=== PATIENT | female | born 1945 | race Caucasian/White ===

== ENCOUNTER → 2017-02-09 | Outpatient (CLI) | payer MEDICARE, BC ==
--- NOTE | 2017-02-10 08:10 | WWHP ---
CHIEF COMPLAINT: The patient is here for her routine gynecologic exam and mammogram. HPI: This is a 71-year-old G2, P2 with an LMP of 1989. She is status post SAMEER for benign reasons. The patient had a trial of estrogen vaginal cream, which she used briefly. She ended up not being sexually active because of health issues with her boyfriend. She is without gynecologic complaints. PAST MEDICAL HISTORY: Elevated cholesterol, osteopenia and history of kidney stones. MEDICATIONS: 1. Simvastatin 20 mg daily. 2. Calcium supplement with vitamin D 1 daily. 3. Aspirin 81 mg every other day. 4. Vitamin B complex 1 every other day. 5. Vitamin C 3000 units daily. ALLERGIES: PENICILLIN, WHICH CAUSED RASH. 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 SOCIAL HISTORY: She smokes three-quarters of a pack of cigarettes per day and has about two alcoholic drinks per month. She denies drug use. She has been with her boyfriend since 2013, but does not live with him and is not sexually active. She was previously a . She does not work outside the home. REVIEW OF SYSTEMS: She has lost about 3 pounds over the last year. She denies respiratory, cardiac, or GI problems. PHYSICAL EXAM: Blood pressure 118/62, height 5 feet 0 inches, weight 98 pounds. Temperature 96.4, pulse 85. This is a well developed, well nourished white female who is alert and oriented x3 in no acute distress. HEENT is within normal limits. Neck is supple without mass or thyromegaly. Chest and lungs clear to auscultation. Heart: Regular rate and rhythm. Breasts are without mass or discharge. Axillary exam is negative for adenopathy. Back negative for CVA tenderness. Abdomen is soft, nontender without palpable masses. Pelvic exam: External genitalia reveals mild to moderate atrophy without lesions. Vagina reveals mild to moderate atrophy without lesions. There is no evidence of prolapse. Bimanual exam is negative for mass or tenderness. Rectovaginal exam is negative for mass or tenderness and is negative for occult blood. Extremities are nontender. IMPRESSION: 1. A 71-year-old menopausal female status post total abdominal hysterectomy for benign reasons with normal gynecologic exam. 2. History of osteopenia. PLAN: 1. PAP smears have been discontinued. 2. Self breast examination was discussed. 3. Mammogram will be done today. 4. Osteoporosis prevention was discussed. I have recommended bone density testing and slip was given to the patient for this. 5. I have recommended that she try to quit smoking and we have discussed many reasons why she should do this. 6. She will return in one year. TOMMY
--- NOTE | 2017-02-11 08:58 | MM ---
Reason for exam: screening (asymptomatic). Last mammogram was performed 1 year and 1 month ago. History: Patient is postmenopausal. Family history of breast cancer in maternal aunt at age 80. Took estrogen for 2 years. Took progesterone for 2 years. Physical Findings: A clinical breast exam by your physician is recommended on an annual basis and results should be correlated with mammographic findings. MG 3D Screening Mammo W/Cad Bilateral CC and MLO view(s) were taken. Prior study comparison: January 21, 2016, bilateral MG 3d screening mammo w/cad. January 15, 2015, bilateral MG screening mammo w CAD. January 09, 2014, bilateral MG screening mammo w CAD. November 08, 2012, bilateral digital screening mammo w/CAD. There are scattered fibroglandular densities. No significant changes when compared with prior studies. ASSESSMENT: Negative, BI-RAD 1 RECOMMENDATION: Routine screening mammogram of both breasts in 1 year.
== END | disposition home or self-care (01) ==
LOC: WWCWWP 10:59
PROVIDERS: ATTEND Obstetrics & Gynecology
DX: Z12.31 Encounter for screening mammogram for malignant neoplasm of breast (principal)
CPT/HCPCS: 77063; G0202

== ENCOUNTER → 2018-03-08 | Outpatient (CLI) | payer MEDICARE, BC ==
[2018-03-08 13:53] VITALS: BP 112/73; PULSE 73; TEMP 97.9; BMI 16.0
--- NOTE | 2018-03-08 14:42 | P.HPOB ---
History of Present Illness H&P Date: 03/08/18 Chief Complaint: The patient is here for her routine gynecologic exam and mammogram. This is a 72-year-old with an LMP of 1989. The patient is status post [facility] for benign reasons. The patient is without gynecologic complaints. She is not sexually active. Review of Systems She has lost 16 pounds over the past year. She denies respiratory, cardiac and G.I. problems. She denies maltreatment or problems with falling. : she denies any significant problems with urinary leakage. 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 She is status post SAMEER in 1993 uterine fibroids and abnormal bleeding. History of Any Multi-Drug Resistant Organisms: None Reported Past Surgical History: Section, Hysterectomy ([facility] 1989) Additional Past Surgical History / Comment(s): hemorhoid. Colonoscopy 2012 & 2017. Past Psychological History: No Psychological Hx Reported Smoking Status: Former smoker (Previous tobacco smoker, now smoking E cigarettes ) Past Alcohol Use History: Occasional (2 per month) Past Drug Use History: None Reported Additional History: She has been with her boyfriend since 2013 but does not live with him and is not sexually active. She is a and does not work outside the home. - Past Family History Mother Family Medical History: No Reported History Additional Family Medical History / Comment(s): 1 maternal aunt had breast cancer and another maternal aunt had colon cancer. Medications and Allergies Home Medications Medication Instructions Recorded Confirmed Type ALPRAZolam [ALPRAZolam XR] 1.5 PO HS 03/08/18 History Ascorbic Acid [Vitamin C] 3,000 mg PO DAILY 03/08/18 03/08/18 History Aspirin PO DAILY 03/08/18 History Atorvastatin [Lipitor] mg PO DAILY 03/08/18 History Allergies Allergy/AdvReac Type Severity Reaction Status Date / Time No Known Allergies Allergy Unverified 03/08/18 13:53 Exam Vital Signs Temp Pulse BP 03/08/18 13:50 97.9 F 73 112/73 Intake and Output 03/07/18 03/08/18 03/08/18 22:59 06:59 14:59 Other: Weight 37.195 kg Height 5'0", BMI 16.0. This is a well-developed well-nourished white female who is alert and oriented times 3 in no acute distress. HEENT: Within normal limits. NECK: Supple without mass or thyromegaly. CHEST AND LUNGS: Clear to auscultation. HEART: Regular rate and rhythm. BREASTS: Are without mass or discharge. AXILLARY EXAM: Negative for adenopathy. BACK: Negative for CVA tenderness. ABDOMEN: Soft, nontender, without palpable masses. PELVIC EXAM: Normal external genitalia with mild atrophy. Vagina appears normal with mild atrophy. There is no unusual discharge. There is no evidence of prolapse. There are no palpable adnexal masses or tenderness. RECTAL EXAM: rectovaginal exam is negative for mass or tenderness and is negative for occult blood. EXTREMITIES: Nontender. IMPRESSION: 1. 72-year-old menopausal female status post SAMEER for benign reasons with normal gynecologic exam. 2. History of osteopenia. PLAN: 1. Pap smears have been discontinued. 2. Self breast awareness was discussed. 3. Screening mammogram will be done today. 4. Osteoporosis prevention was discussed. I have recommended bone density screening since it has been several years since she has done this. The order slip was given to the patient for this. 5. She does get flu shots in the fall and she will be getting this in the near future. 6. She will return in one year.
--- NOTE | 2018-03-09 12:04 | MM ---
Reason for exam: screening (asymptomatic). Last mammogram was performed 1 year and 1 month ago. History: Patient is postmenopausal. Family history of breast cancer in maternal aunt at age 80. Took estrogen for 2 years. Took progesterone for 2 years. Physical Findings: A clinical breast exam by your physician is recommended on an annual basis and results should be correlated with mammographic findings. MG Screening Mammo w CAD Bilateral CC and MLO view(s) were taken. Prior study comparison: February 09, 2017, bilateral MG 3d screening mammo w/cad. January 21, 2016, bilateral MG 3d screening mammo w/cad. The breast tissue is heterogeneously dense. This may lower the sensitivity of mammography. There is no discrete abnormality. No significant changes when compared with prior studies. ASSESSMENT: Negative, BI-RAD 1 RECOMMENDATION: Routine screening mammogram of both breasts in 1 year.
== END | disposition home or self-care (01) ==
LOC: WWCWWP 13:31
PROVIDERS: ATTEND Obstetrics & Gynecology
DX: Z12.31 Encounter for screening mammogram for malignant neoplasm of breast (principal)
CPT/HCPCS: 77067

== ENCOUNTER → 2018-04-04 | Outpatient (CLI) | payer MEDICARE, BC ==
--- NOTE | 2018-04-05 06:52 | BD ---
EXAMINATION TYPE: Axial Bone Density DATE OF EXAM: 04/04/2018 COMPARISON: 2004 CLINICAL HISTORY: post menopausal Height: 5' Weight: 98 FRAX RISK QUESTIONS: Secondary Osteoporosis: Current Tobacco Use: e cigarettes RISK FACTORS HISTORY OF: Postmenopausal woman: y MEDICATIONS: Additional Medications: cholesterol Additional History: EXAM MEASUREMENTS: Bone mineral densitometry was performed using the [employer] System. Bone mineral density as measured about the Lumbar spine is: ----- L1-L4(G/cm2): 0.958 T Score Values are as follows: ----- L2: -2.2 ----- L3: -1.4 ----- L4: -2.1 ----- L1-L4: -1.8 Bone mineral density about the R hip (g/cm2): 0.909 Bone mineral density about the L hip (g/cm2): 0.894 T Score values are as follows: -----R Neck: -0.9 -----L Neck: -1.0 -----R Total: -0.8 -----L Total: -0.6 IMPRESSION: Osteopenia (T Score between -2.5 and -1) overall in the low back. There is slightly increased risk of fracture and the patient may be considered for treatment. Re-Screen 2-5 years. NOTE: T-SCORE=SD OF THE YOUNG ADULT MEAN.
--- NOTE | 2018-04-05 17:49 | P.PN ---
Progress Note - Text Progress Note Date: 04/05/18 OUTPATIENT FOLLOW-UP NOTE TEST(S)/RESULTS: bone density testing done on 04/04/2018 showed osteopenia. METHOD OF NOTIFICATION: the patient was notified by phone. PATIENT COMMENTS: the patient understands the results. DIAGNOSIS: osteopenia DISCUSSION: we had a long discussion regarding the importance of adequate calcium, vitamin D and regular exercise. She will use the handout that she received to help her get adequate amounts of things. PLAN: she will return in one year for her annual exam and we will plan on repeating the bone density testing in 2 to 3 years.
== END | disposition home or self-care (01) ==
LOC: RADBDWWP 14:35
PROVIDERS: ATTEND Obstetrics & Gynecology
DX: M85.88 Other specified disorders of bone density and structure, other site (principal); Z78.0 Asymptomatic menopausal state
CPT/HCPCS: 77080

== ENCOUNTER → 2019-07-04 | Outpatient (CLI) | payer MEDICARE, BC ==
[2019-07-04 14:02] VITALS: BP 137/77; PULSE 72; RESP 18; TEMP 97.8
--- NOTE | 2019-07-04 15:01 | P.HPOB ---
History of Present Illness H&P Date: 07/04/19 Chief Complaint: The patient is here for her routine gynecologic exam and ma mmogram. This is a 73-year-old with an LMP of 1989. The patient is status post SAMEER for benign reasons. The patient states she has had an infrequent brownish red discharge which is typically very brief and occurs about once a month. This has gone on for more than 10 years. She initially had seen Dr. Benitez for this. She has not been sexually active for many years but is contemplating being sexually active with her new boyfriend. She denies any vaginal odor or pruritus. She tends to notice the dark reddish discharge after she strains for a bowel movement, or if she has been on her feet for many hours. She does not believe this comes from the rectal area or from her urine. It typically only lasts for part of 1 day. She is otherwise without complaints. Review of Systems She has gained about 3 pounds over the last 2 years.. She denies respiratory, cardiac and G.I. problems. She denies maltreatment or problems with falling. : she denies any significant problems with urinary leakage. 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 She is status post SAMEER in 1993 uterine fibroids and abnormal bleeding. History of Any Multi-Drug Resistant Organisms: None Reported Past Surgical History: Section, Hysterectomy Additional Past Surgical History / Comment(s): SAMEER 1989. hemorhoid. Colonoscopy 2012 & 2017. Past Psychological History: No Psychological Hx Reported Smoking Status: Former smoker Past Alcohol Use History: Occasional Additional Past Alcohol Use History / Comment(s): She quit smoking cigarettes in approximately 2017. She does smoke a cigarettes but states she does not inhale. Past Drug Use History: None Reported Additional History: She is a and recently met her boyfriend in May 2019. - Past Family History Mother Family Medical History: No Reported History Additional Family Medical History / Comment(s): 1 maternal aunt had breast cancer and another maternal aunt had colon cancer. Medications and Allergies Home Medications Medication Instructions Recorded Confirmed Type ALPRAZolam [ALPRAZolam XR] 1.5 mg PO HS PRN 03/08/18 07/04/19 History Ascorbic Acid [Vitamin C] 3,000 mg PO DAILY 03/08/18 07/04/19 History Aspirin 81 mg PO DAILY 03/08/18 07/04/19 History Atorvastatin [Lipitor] 40 mg PO DAILY 03/08/18 07/04/19 History Allergies Allergy/AdvReac Type Severity Reaction Status Date / Time No Known Allergies Allergy Unverified 07/04/19 14:02 Exam Vital Signs Temp Pulse Resp BP Pulse Ox 07/04/19 13:55 97.8 F 72 18 137/77 96 Intake and Output 07/03/19 07/04/19 07/04/19 22:59 06:59 14:59 Other: Weight 45.813 kg Height 5 feet 0 inches, weight 101 pounds, BMI 19.7. This is a well-developed well-nourished white female who is alert and oriented times 3 in no acute distress. HEENT: Within normal limits. NECK: Supple without mass or thyromegaly. CHEST AND LUNGS: Clear to auscultation. HEART: Regular rate and rhythm. BREASTS: Are without mass or discharge. AXILLARY EXAM: Negative for adenopathy. BACK: Negative for CVA tenderness. ABDOMEN: Soft, nontender, without palpable masses. PELVIC EXAM: External genitalia appears normal with mild atrophy. Vagina appears normal with mild atrophy. There is no blood or abnormal discharge. There is no evidence of prolapse. Bimanual examination is negative for mass or tenderness. RECTAL EXAM: Rectovaginal exam is negative for mass or tenderness and is negative for occult blood. EXTREMITIES: Nontender. IMPRESSION: 1. 73-year-old menopausal female status post SAMEER for benign reasons with normal gynecologic exam. 2. Intermittent brief episodes of old blood type discharge from the vagina most common when she strains for a bowel movement or has been on her feet for many hours. Differential diagnosis will include small blood from atrophic vaginal mucosa, hemorrhoid blood, perivaginal varicosity bleeding, or urinary tract blood. 3. History of osteoporosis PLAN: 1. Pap smears have been discontinued. 2. Self breast awareness was discussed with the patient. 3. A mammogram will be done today. 4. Osteoporosis prevention was discussed. I have stressed the importance of adequate calcium, vitamin D and regular exercise. Recommended amounts of calcium and vitamin D were also discussed. Bone density testing will be done in one year 5. Trial of Premarin vaginal cream. We will see if this is helpful for her intermittent vaginal bloody discharge. This may also be helpful since she is contemplating it becoming sexually active. Premarin 1 g intravaginally 2 times weekly. The patient is requesting a paper prescription which was given to her. 6. She was instructed to call at the time she has a bloody is discharged so he cannot examine her at that time, if possible. 7. She did get a flu shot last fall. 8. She was advised to return in one year for her annual well woman exam.
--- NOTE | 2019-07-06 10:44 | MM ---
Reason for exam: screening (asymptomatic). Last mammogram was performed 1 year and 4 months ago. History: Patient is postmenopausal. Family history of breast cancer in maternal aunt at age 80. Took hormonal contraceptives for 10 years. Took estrogen for 2 years. Took progesterone for 2 years. Physical Findings: A clinical breast exam by your physician is recommended on an annual basis and results should be correlated with mammographic findings. MG 3D Screening Mammo W/Cad Bilateral CC and MLO view(s) were taken. Prior study comparison: March 08, 2018, bilateral MG screening mammo w CAD. February 09, 2017, bilateral MG 3d screening mammo w/cad. There are scattered fibroglandular densities. No significant changes when compared with prior studies. ASSESSMENT: Benign, BI-RAD 2 RECOMMENDATION: Routine screening mammogram of both breasts in 1 year.
== END | disposition home or self-care (01) ==
LOC: WWCWWP 13:47
PROVIDERS: ATTEND Obstetrics & Gynecology
DX: Z12.31 Encounter for screening mammogram for malignant neoplasm of breast (principal)
CPT/HCPCS: 77063; 77067

== ENCOUNTER → 2020-12-03 | Outpatient (CLI) | payer MEDICARE, BC ==
[2020-12-03 14:29] VITALS: BP 108/70; PULSE 82; RESP 18; TEMP 98
--- NOTE | 2020-12-03 15:15 | P.HPOB ---
History of Present Illness H&P Date: 12/03/20 Chief Complaint: The patient is here for her routine gynecologic exam and ma mmogram. This is a 75-year-old with an LMP of 1989. The patient is status post SAMEER for benign reasons. She is without gynecologic complaints. She states she no longer has the occasional brownish red discharge like she had in the past. We had planned on having her try estrogen cream into the vagina to see if it helped, but she never used this. Instead she has been using Astra glide into the vagina and states she no longer has the brownish reddish discharge. She has a boyfriend who lives in [place] and they have not been able to see each other during the COVID pandemic. Review of Systems She has lost about 3 pounds over the past year. She denies respiratory, cardiac and G.I. problems. She denies maltreatment or problems with falling. : she denies any significant problems with urinary leakage. 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 She is status post SAMEER in 1993 uterine fibroids and abnormal bleeding. History of Any Multi-Drug Resistant Organisms: None Reported Past Surgical History: Section, Hysterectomy Additional Past Surgical History / Comment(s): SAMEER 1989. hemorhoid. Colonoscopy 2012 & 2018(next after 10yr). Past Psychological History: No Psychological Hx Reported Smoking Status: Former smoker Past Alcohol Use History: Daily (2 per day) Additional Past Alcohol Use History / Comment(s): She quit smoking cigarettes in approximately 2018. Past Drug Use History: None Reported Additional History: She is a and has had a boyfriend since 2019 who [place] [facility] [place]. She enjoys dancing. - Past Family History Mother Family Medical History: No Reported History Additional Family Medical History / Comment(s): 1 maternal aunt had breast cancer and another maternal aunt had colon cancer. Brother(s) Additional Family Medical History / Comment(s): of a brain aneurysm. Medications and Allergies Home Medications Medication Instructions Recorded Confirmed Type ALPRAZolam [ALPRAZolam XR] 1.5 mg PO HS PRN 03/08/18 12/03/20 History Ascorbic Acid [Vitamin C] 2,000 mg PO DAILY 03/08/18 12/03/20 History Aspirin 81 mg PO DAILY 03/08/18 12/03/20 History Atorvastatin [Lipitor] 40 mg PO DAILY 03/08/18 12/03/20 History Calcium Carbonate/Vitamin D3 1 each PO DAILY 12/03/20 12/03/20 History [Calcium 600 mg-D3 20 mcg (800 unit)] Cholecalciferol [Vitamin D3 (25 25 mcg PO DAILY 12/03/20 12/03/20 History Mcg = 1000 Iu)] Equate Allergy 180 mg PO DAILY 12/03/20 12/03/20 History Glucosamine-Chondr 500-400Mg 1 each PO DAILY 12/03/20 12/03/20 History Stool Softener 1 tab PO DAILY 12/03/20 12/03/20 History Super B-Complex 1 tab PO DAILY 12/03/20 12/03/20 History Turmeric Root Extract [Turmeric] 500 mg PO DAILY 12/03/20 12/03/20 History Allergies Allergy/AdvReac Type Severity Reaction Status Date / Time No Known Allergies Allergy Unverified 12/03/20 14:17 Exam Vital Signs Temp Pulse Resp BP Pulse Ox 12/03/20 14:24 98.0 F 82 18 108/70 95 Intake and Output 12/03/20 12/03/20 12/03/20 06:59 14:59 22:59 Other: Weight 44.452 kg Height 5 feet 0 inches, weight 98 pounds, BMI 19.1. This is a well-developed well-nourished white female who is alert and oriented times 3 in no acute distress. HEENT: Within normal limits. NECK: Supple without mass or thyromegaly. CHEST AND LUNGS: Clear to auscultation. HEART: Regular rate and rhythm. BREASTS: Are without mass or discharge. AXILLARY EXAM: Negative for adenopathy. BACK: Negative for CVA tenderness. ABDOMEN: Soft, nontender, without palpable masses. PELVIC EXAM: External genitalia appears normal with mild to moderate atrophy. Vagina appears normal with mild to moderate atrophy. There is no unusual discharge and no evidence of blood. There is no evidence of prolapse. Bimanual examination is negative for mass or tenderness. RECTAL EXAM: Rectovaginal exam is negative for mass or tenderness and is negative for occult blood. EXTREMITIES: Nontender. IMPRESSION: 1. 75-year-old menopausal female status post SAMEER for benign reasons with normal gynecologic exam. 2. History of osteopenia. PLAN: 1. Pap smears have been discontinued. 2. Self breast awareness was discussed with the patient. 3. Screening mammogram will be done today. 4. Osteoporosis prevention was discussed. I have stressed the importance of adequate calcium, vitamin D and regular exercise. Recommended amounts of calcium and vitamin D were also discussed. I have recommended repeating the bone density testing and the order slip was given to the patient for this. 5. She did complete her Covid vaccination series and did have a flu shot last fall. 6. The patient was advised to return in 1-2 years for her well woman examination.
--- NOTE | 2020-12-05 08:40 | MM ---
Reason for exam: screening (asymptomatic). Last mammogram was performed 1 year and 5 months ago. History: Patient is postmenopausal. Family history of breast cancer in maternal aunt at age 80. Took hormonal contraceptives for 10 years. Took estrogen for 2 years. Took progesterone for 2 years. Physical Findings: A clinical breast exam by your physician is recommended on an annual basis and results should be correlated with mammographic findings. MG 3D Screening Mammo W/Cad Bilateral CC and MLO view(s) were taken. Prior study comparison: July 04, 2019, bilateral MG 3d screening mammo w/cad. March 08, 2018, bilateral MG screening mammo w CAD. There are scattered fibroglandular densities. No significant changes when compared with prior studies. ASSESSMENT: Negative, BI-RAD 1 RECOMMENDATION: Routine screening mammogram of both breasts in 1 year.
== END ==
LOC: WWCWWP 13:51
PROVIDERS: ATTEND Obstetrics & Gynecology
DX: Z12.31 Encounter for screening mammogram for malignant neoplasm of breast (principal); Z01.419 Encounter for gynecological examination (general) (routine) without abnormal findings; E78.5 Hyperlipidemia, unspecified; Z80.3 Family history of malignant neoplasm of breast; Z87.891 Personal history of nicotine dependence; Z90.710 Acquired absence of both cervix and uterus; Z87.39 Personal history of other diseases of the musculoskeletal system and connective tissue
CPT/HCPCS: 77063; 77067

== ENCOUNTER → 2022-01-27 | Outpatient (CLI) | payer MEDICARE, BC ==
[2022-01-27 12:53] VITALS: BP 135/69; PULSE 74; RESP 17; TEMP 98.1
--- NOTE | 2022-01-27 13:39 | P.HPOB ---
History of Present Illness H&P Date: 01/27/22 Chief Complaint: The patient is here for her routine gynecologic exam and ma mmogram. This is a 76-year-old with an LMP of 1989. She is status post SAMEER for benign reasons. The patient states she had not been sexually active for quite some time because of the inability for [place] boyfriend [place] due to the pandemic. This year, they are now able to see each other and have been infrequently sexually active. She denies problems with discomfort with intercourse or vaginal dryness. She has noticed on a couple of occasions that she has had some post coital light spotting. She has had this in the past but has not noticed it for quite some time until about 3 months ago and again last week. She denies any current vaginal bleeding today. She denies vaginal discharge or odor. Review of Systems The patient has gained 4 pounds over the last year. She denies respiratory, cardiac, or G.I. problems. 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 She is status post SAMEER in 1993 uterine fibroids and abnormal bleeding. History of Any Multi-Drug Resistant Organisms: None Reported Past Surgical History: Section, Hysterectomy Additional Past Surgical History / Comment(s): SAMEER 1989. hemorhoid. Colonoscopy 2012 & 2018(next after 10yr). Past Psychological History: No Psychological Hx Reported Smoking Status: Former smoker Past Alcohol Use History: Occasional (About 8 per week) Additional Past Alcohol Use History / Comment(s): She quit smoking cigarettes in approximately 2018. Past Drug Use History: None Reported Additional History: She is a and has had a boyfriend in [place] since 2019. They enjoy dancing. They are sexually active. - Past Family History Mother Family Medical History: No Reported History Additional Family Medical History / Comment(s): 1 maternal aunt had breast cancer and another maternal aunt had colon cancer. Brother(s) Additional Family Medical History / Comment(s): of a brain aneurysm. Sister(s) Additional Family Medical History / Comment(s): Carotid artery disease. Medications and Allergies Home Medications Medication Instructions Recorded Confirmed Type ALPRAZolam [ALPRAZolam XR] 1.5 mg PO HS PRN 09/11/18 06/08/21 History Ascorbic Acid [Vitamin C] 2,000 mg PO DAILY 03/08/18 12/03/20 History Aspirin 81 mg PO DAILY 03/08/18 12/03/20 History Atorvastatin [Lipitor] 40 mg PO DAILY 03/08/18 12/03/20 History Calcium Carbonate/Vitamin D3 1 each PO DAILY 12/03/20 12/03/20 History [Calcium 600 mg-D3 20 mcg (800 unit)] Cholecalciferol [Vitamin D3 (25 25 mcg PO DAILY 12/03/20 12/03/20 History Mcg = 1000 Iu)] Equate Allergy 180 mg PO DAILY 12/03/20 12/03/20 History Glucosamine-Chondr 500-400Mg 1 each PO DAILY 12/03/20 12/03/20 History Stool Softener 1 tab PO DAILY 12/03/20 12/03/20 History Super B-Complex 1 tab PO DAILY 12/03/20 12/03/20 History Turmeric Root Extract [Turmeric] 500 mg PO DAILY 12/03/20 12/03/20 History Allergies Allergy/AdvReac Type Severity Reaction Status Date / Time No Known Allergies Allergy Unverified 12/03/20 14:17 Exam Vital Signs Temp Pulse Resp BP Pulse Ox 01/27/22 12:49 98.1 F 74 17 135/69 96 Intake and Output 01/26/22 01/27/22 01/27/22 22:59 06:59 14:59 Other: Weight 46.266 kg Height 5 feet 0 inches, weight 102 pounds, BMI 19.9. This is a well-developed well-nourished white female who is alert and oriented times 3 in no acute distress. HEENT: Within normal limits. NECK: Supple without mass or thyromegaly. CHEST AND LUNGS: Clear to auscultation. HEART: Regular rate and rhythm. BREASTS: Are without mass or discharge. AXILLARY EXAM: Negative for adenopathy. BACK: Negative for CVA tenderness. ABDOMEN: Soft, nontender, without palpable masses. PELVIC EXAM: External genitalia appears normal with mild atrophy. Vagina appears normal is mild atrophy. There is no evidence of blood or evidence of abnormal discharge. There is no evidence of prolapse. Bimanual examination reveals a pelvic mass just superior and posterior to the vaginal apex. It measures approximately 3 x 4 cm and is slightly irregular. RECTAL EXAM: Rectovaginal exam reveals some stool in the rectum, but there still is a mass superior and posterior to the apex of the vagina. This is nontender. EXTREMITIES: Nontender. IMPRESSION: 1. 76-year-old menopausal female status post SAMEER for benign reasons with a pelvic mass palpable with bimanual examination. Differential diagnosis will include colonic stool and less likely, ovarian neoplasm. 2. Occasional post coital spotting. This is not from a uterine source since she has had a hysterectomy. This could be related to some genital atrophy. Currently there are no significant physical findings indicating a specific source of the blood. 3. History of osteopenia. PLAN: 1. Pap smears have been discontinued. 2. Self breast awareness was discussed with the patient. We have also discussed symptoms associated with inflammatory breast cancer. 3. Screening mammogram will be done today. 4. Pelvic ultrasound was recommended to further evaluate the pelvic mass on exam today. I recommended that she try to empty her bowels as completely as possible. I have suggested considering using Senokot the week prior to the ultrasound. The order for the ultrasound was given to the patient. 5. Trial of Premarin vaginal cream 1 g into the vagina 2 times per week. The electronic prescription will be sent to [facility] pharmacy. 6.Osteoporosis prevention was discussed. I have stressed the importance of adequate calcium, vitamin D and regular exercise. Recommended amounts of calcium and vitamin D were also discussed. I have recommended bone density test since her last one was in 2018. The order slip was given to the patient for this. 7. She has completed her Covid vaccination series and did receive 2 boosters. 8. She was advised to return in one year for her annual well woman exam and as needed.
--- NOTE | 2022-01-28 08:53 | MM ---
Reason for Exam: Screening (asymptomatic). Last mammogram was performed 1 year(s) and 2 month(s) ago. Patient History: Menarche at age 16. First Full-Term at age 19. Hysterectomy at age 47. Postmenopausal. Estrogen for 2 years until age 58. Progesterone for 2 years until age 58. Patient used Hormonal Contraceptives for 10 years. Maternal aunt had breast cancer, age 80. Risk Values: Marli 5 year model risk: 1.2%. NCI Lifetime model risk: 2.7%. Prior Study Comparison: 03/08/2018 Bilateral Screening Mammogram, [facility]. 07/04/2019 Bilateral Screening Mammogram, [facility]. 12/03/2020 Bilateral Screening Mammogram, [facility]. Tissue Density: There are scattered fibroglandular densities. Findings: Analyzed By CAD. A few stable benign appearing grouped calcifications are within the anterior right subareolar breast. No suspicious groups of microcalcifications, spiculated or lobular masses, architectural distortion or other secondary signs of malignancy are mammographically apparent. Overall Assessment: Benign, BI-RAD 2 Management: Screening Mammogram of both breasts in 1 year. A negative mammogram report should not preclude additional follow up of suspicious palpable abnormalities. Patient should continue monthly self breast exam. A clinical breast exam by your physician is recommended on an annual basis and results should be correlated with mammographic findings. Electronically signed and approved by: Marques Sorto D.O. Radiologis
== END ==
LOC: WWCWWP 12:26
PROVIDERS: ATTEND Obstetrics & Gynecology
DX: Z12.31 Encounter for screening mammogram for malignant neoplasm of breast (principal); Z01.419 Encounter for gynecological examination (general) (routine) without abnormal findings; N93.9 Abnormal uterine and vaginal bleeding, unspecified; Z87.891 Personal history of nicotine dependence; E78.5 Hyperlipidemia, unspecified; Z90.710 Acquired absence of both cervix and uterus; Z87.39 Personal history of other diseases of the musculoskeletal system and connective tissue
CPT/HCPCS: 77063; 77067

== ENCOUNTER → 2022-02-03 | Outpatient (CLI) | payer MEDICARE, BC ==
--- NOTE | 2022-02-03 15:53 | US ---
EXAMINATION TYPE: US pelvic limited with transvaginal imaging DATE OF EXAM: 02/03/2022 COMPARISON: NONE CLINICAL HISTORY: R68.89 ABN PELVIC EXAM,R19.09 PELVIC MASS. pt had recent pelvic exam that showed po ssible pelvic mass TECHNIQUE: . Transabdominal sonographic images of the pelvis were acquired. Transvaginal sonographi c images were medically necessary to better assess the following anatomy: vaginal cuff and surroundin g adnexae 1. Uterus: surgically absent 2. Unable to visualize either ovary. 3. No pelvic mass noted. 4. Normal peristalsing bowel noted. 5. Bilateral Adnexa: wnl 6. Posterior cul-de-sac: no free fluid seen IMPRESSION: Postoperative pelvis without evidence for recurrent or residual mass.
--- NOTE | 2022-02-04 11:54 | P.PN ---
Progress Note - Text Progress Note Date: 02/04/22 OUTPATIENT FOLLOW-UP NOTE TEST(S)/RESULTS: Pelvic ultrasound done on 02/03/2022 was unremarkable with no evidence of pelvic mass. METHOD OF NOTIFICATION: A message with this result was left on the patient's voicemail. PATIENT COMMENTS: DIAGNOSIS: Normal pelvic ultrasound. DISCUSSION: The mass palpated on her exam near the top of the vaginal cuff was likely represented colonic stool. PLAN: No further workup is needed at this time.
== END | disposition home or self-care (01) ==
LOC: RADUSWWP 15:20
PROVIDERS: ATTEND Obstetrics & Gynecology
DX: R19.09 Other intra-abdominal and pelvic swelling, mass and lump (principal); R68.89 Other general symptoms and signs
CPT/HCPCS: 76830; 76857

== ENCOUNTER 2024-09-12 16:05 | Inpatient (IN) | payer MEDICARE, BC ==
--- NOTE | 2024-09-12 16:55 | ED ---
Fall HPI - General Chief Complaint: Fall Stated Complaint: Fall R Hip injury Time Seen by Provider: 09/12/24 16:19 Source: patient Mode of arrival: ambulatory - History of Present Illness Initial Comments: 79-year-old female presenting with chief complaint of right hip pain. Patient reports pain has been particularly bad for the last 4 days. She reports that she had a fall back in April and has been doing physical therapy but has not really had any improvement with this and now her pain has been getting worse. No numbness or tingling. Sometimes the pain does shoot down her leg. No abdominal pain. - Related Data Home Medications Medication Instructions Recorded Confirmed Ascorbic Acid [Vitamin C] 1,000 mg PO DAILY 03/08/18 03/23/23 Atorvastatin [Lipitor] 40 mg PO HS 03/08/18 03/23/23 Cholecalciferol [Vitamin D3 (25 25 mcg PO DAILY 12/03/20 03/23/23 Mcg = 1000 Iu)] ALPRAZolam [Xanax] 0.5 mg PO TID PRN 09/01/22 03/23/23 Docusate [Colace] 100 mg PO DAILY 09/01/22 03/23/23 Vitamin B Complex 1 cap PO DAILY 09/01/22 03/23/23 calcium polycarbophiL [Fibercon] 625 mg PO DAILY 09/01/22 03/23/23 rOPINIRole HCL [Requip] 1 mg PO HS 09/01/22 03/23/23 Previous Rx's Medication Instructions Recorded predniSONE [Deltasone] 60 mg PO DAILY 56 Days #91 tab 09/03/22 Allergies Allergy/AdvReac Type Severity Reaction Status Date / Time Penicillins Allergy Rash/Hives Verified 09/12/24 16:07 all over Review of Systems ROS Statement: Those systems with pertinent positive or pertinent negative responses have been documented in the HPI. ROS Other: All systems not noted in ROS Statement are negative. Past Medical History Past Medical History: Hyperlipidemia Additional Past Medical History / Comment(s): Osteopenia and history of kidney stones. Valladares's palsy in 2022. Restless Leg Syndrome. 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 She is status post SAMEER in 1993 uterine fibroids and abnormal bleeding. History of Any Multi-Drug Resistant Organisms: None Reported Past Surgical History: Section, Hysterectomy Additional Past Surgical History / Comment(s): SAMEER 1989. hemorhoid. Colonoscopy 2013 & 2018(next after 10yr). Past Anesthesia/Blood Transfusion Reactions: No Reported Reaction Past Psychological History: No Psychological Hx Reported, Anxiety Smoking Status: Former smoker Past Alcohol Use History: Occasional Past Drug Use History: None Reported - Past Family History Mother Family Medical History: No Reported History Additional Family Medical History / Comment(s): 1 maternal aunt had breast cancer and another maternal aunt had colon cancer. Brother(s) Additional Family Medical History / Comment(s): of a brain aneurysm. Sister(s) Additional Family Medical History / Comment(s): Carotid artery disease. General Exam Limitations: no limitations General appearance: alert, in no apparent distress Head exam: Present: atraumatic, normocephalic, normal inspection Eye exam: Present: normal appearance, EOMI Neck exam: Present: normal inspection. Absent: meningismus Respiratory exam: Absent: respiratory distress Cardiovascular Exam: Present: regular rate Extremities exam: Present: normal inspection Neurological exam: Present: alert, oriented X3 Psychiatric exam: Present: normal affect, normal mood Skin exam: Present: normal color Course Vital Signs 09/12/24 09/12/24 16:07 17:08 Temperature 97.8 F Pulse Rate 88 86 Respiratory 20 16 Rate Blood Pressure 189/91 158/88 O2 Sat by Pulse 97 98 Oximetry Disposition Clinical Impression: Pubic ramus fracture Disposition: ADMITTED IP TO THIS HOSP Condition: Fair Referrals: Mikhail Avitia MD [Primary Care Provider] - 1-2 days Time of Disposition: 17:51
--- NOTE | 2024-09-12 17:23 | XR ---
EXAMINATION TYPE: XR Hip RT and AP Pelvis DATE OF EXAM: 09/12/2024 5:00 PM COMPARISON: Hip radiograph 09/08/2024. CLINICAL INDICATION: Female, 79 years old with history of pain; PHH, pain TECHNIQUE: XR Hip RT and AP Pelvis; hip was examined in the frontal and lateral projections and a AP pelvis. FINDINGS: Comminuted mildly displaced fractures of the right superior and inferior pubic rami. Right hip appears grossly intact. Mild to moderate bilateral hip degenerative osteophytic changes. Left pel kassidy bones appear grossly intact. IMPRESSION: Comminuted fractures of the right superior and inferior pubic rami, not significantly changed from re cent study 09/08/2024. [facility], , 09/12/2024 5:20 PM
[2024-09-12] MEDS ORDERED: HYDROcodone/APAP 5-325MG 1 EACH TAB PO PRN (17:45)
[2024-09-12] MEDS ORDERED: ACETAMINOPHEN TAB 325 MG TAB PO PRN (17:45)
[2024-09-12] MEDS ORDERED: MORPHINE SULFATE 4 MG/ML SYRINGE IV PRN (17:45)
[2024-09-12] MEDS ORDERED: NALOXONE 0.4 MG/ML 1 ML VIAL IV PRN (17:45)
[2024-09-12 18:53] LABS: Basophils % (A) 1 %; Eosinophils # (A) 0.5 k/uL (0-0.7); Eosinophils % (A) 7 %; Hypochromasia Slight; Lymphocytes # (A) 2.1 k/uL (1.0-4.8); Lymphocytes % (A) 29 %; MCH 30.7 pg (25.0-35.0); MCHC 31.6 g/dL (31.0-37.0); Mean Platelet Volume 7.3; Monocytes # (A) 0.3 k/uL (0-1.0); Monocytes % (A) 5 %; Neutrophils # (A) 4.2 k/uL (1.3-7.7); Neutrophils % (A) 56 %; Platelet Count 403 k/uL (150-450); RBC 4.22 m/uL (3.80-5.40); RDW 12.8 % (11.5-15.5); WBC 7.4 k/uL (3.8-10.6)
[2024-09-12 19:29] LABS: ALT 34 U/L (4-34); AST 48 U/L (14-36); African American GFR (CKD) 82 (>60 ml/min/1.73 sqM); Albumin 4.2 g/dL (3.5-5.0); Alkaline Phosphatase 184 U/L (38-126); Anion Gap 8 mmol/L; Blood Urea Nitrogen 18 mg/dL (7-17); Calcium 9.5 mg/dL (8.4-10.2); Carbon Dioxide 29 mmol/L (22-30); Chloride 102 mmol/L (98-107); Glucose 141 mg/dL (74-99); Non-African American GFR(CKD) 71 (>60 ml/min/1.73 sqM); Potassium 4.1 mmol/L (3.5-5.1); Sodium 139 mmol/L (137-145); Total Bilirubin 0.3 mg/dL (0.2-1.3); Total Protein 6.9 g/dL (6.3-8.2)
--- NOTE | 2024-09-13 08:26 | P.HPIM ---
History of Present Illness H&P Date: 09/13/24 Chief Complaint: Hip/pelvic pain. 's's is a history and physical on a 79-year-old white female who came in to see me on Wednesday this past week with significant hip pain. X-ray does show subacute/acute pubic rami fracture. The patient states that she fell many months ago and was recovering for about 3 months and then slowly started getting back to her normal activity but she states lately, anytime she bears weight and walks the pain is becoming much worse. She is sitting comfortably and states she does not need anything to sit or sleep but once she uses her walker to go to the bathroom she states worsening pain. She is now admitted for orthopedic evaluation. Review of Systems Constitutional: Denies chills, Denies fever Eyes: denies blurred vision, denies pain Ears, nose, mouth and throat: Denies headache, Denies sore throat Cardiovascular: Denies chest pain, Denies shortness of breath Respiratory: Denies cough Gastrointestinal: Denies abdominal pain, Denies diarrhea, Denies nausea, Denies vomiting Past Medical History Past Medical History: Hyperlipidemia Additional Past Medical History / Comment(s): Osteopenia and history of kidney stones. Valladares's palsy in 2022. Restless Leg Syndrome. 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 She is status post SAMEER in 1993 uterine fibroids and abnormal bleeding. History of Any Multi-Drug Resistant Organisms: None Reported Past Surgical History: Section, Hysterectomy Additional Past Surgical History / Comment(s): SAMEER 1989. hemorhoid. Colonoscopy 2012 & 2018(next after 10yr). Past Anesthesia/Blood Transfusion Reactions: No Reported Reaction Past Psychological History: No Psychological Hx Reported, Anxiety Additional Psychological History / Comment(s): mild anxiety Smoking Status: Former smoker Past Alcohol Use History: Occasional Additional Past Alcohol Use History / Comment(s): She quit smoking cigarettes in approximately 2018. Past Drug Use History: None Reported - Past Family History Mother Family Medical History: No Reported History Additional Family Medical History / Comment(s): 1 maternal aunt had breast cancer and another maternal aunt had colon cancer. Brother(s) Additional Family Medical History / Comment(s): of a brain aneurysm. Sister(s) Additional Family Medical History / Comment(s): Carotid artery disease. Medications and Allergies Home Medications Medication Instructions Recorded Confirmed Type ALPRAZolam [Xanax] 0.5 mg PO QID PRN 09/01/22 09/12/24 History Cyclobenzaprine [Flexeril] 10 mg PO BID PRN 09/12/24 09/12/24 History HYDROcodone/APAP 5-325MG [Napoleon 1 tab PO Q6H PRN 09/12/24 09/12/24 History 5-325] rOPINIRole HCL [Requip] 2 mg PO DAILY@1800 09/12/24 09/12/24 History Allergies Allergy/AdvReac Type Severity Reaction Status Date / Time Penicillins Allergy Rash/Hives Verified 09/12/24 18:16 all over Physical Exam Vitals: Vital Signs Temp Pulse Pulse Resp BP BP Pulse Ox 09/13/24 01:55 98.4 F 84 16 131/77 95 09/12/24 21:22 98.0 F 77 16 179/79 94 L 09/12/24 20:57 86 17 147/88 96 09/12/24 17:08 86 16 158/88 98 09/12/24 16:07 97.8 F 88 20 189/91 97 Intake and Output 09/12/24 09/13/24 09/13/24 22:59 06:59 14:59 Intake Total 1080 Balance 1080 Intake: Oral 1080 Other: # Voids 3 Weight 49.895 kg - Constitutional General appearance: no acute distress - EENT Eyes: EOMI - Neck Neck: no lymphadenopathy - Respiratory Respiratory: bilateral: diminished - Cardiovascular Rhythm: regular Heart sounds: normal: S1, S2 Abnormal Heart Sounds: no S3 Gallop - Integumentary Integumentary: no cellulitis - Psychiatric Psychiatric: A&O x's 3 Results CBC & Chem 7: 09/12/24 18:45 09/12/24 18:45 Labs: Abnormal Lab Results - Last 24 Hours (Table) 09/12/24 Range/Units 18:45 BUN 18 H (7-17) mg/dL Glucose 141 H (74-99) mg/dL AST 48 H (14-36) U/L Alkaline Phosphatase 184 H (38-126) U/L Thrombosis Risk Factor Assmnt - Choose All That Apply Any of the Below Risk Factors Present?: No Other Risk Factors: Yes Each Risk Factor Represents 3 Points: Age 75 years or older Each Risk Factor Represents 5 Points: Hip, pelvis, or leg fracture (< 1 month) Thrombosis Risk Factor Assessment Total Risk Factor Score: 8 Thrombosis Risk Factor Assessment Level: High Risk Assessment and Plan (1) Pubic ramus fracture Current Visit: Yes Status: Acute Code(s): S32.599A - OTH FRACTURE OF UNSP PUBIS, INIT ENCNTR FOR CLOSED FRACTURE SNOMED Code(s): 0781274613 (2) Hyperlipidemia Current Visit: No Status: Acute Code(s): E78.5 - HYPERLIPIDEMIA, UNSPECIFIED SNOMED Code(s): 52415456 Plan: Consult orthopedic surgery. Pain control as necessary. I told the patient that she is suspected to have significantly decreased activity, restrictions and appropriate pain medication. PT as necessary. Anticipate discharge in next 24-48 hours. The patient is a DNR.
[2024-09-13] MEDS ORDERED: ALPRAZolam 0.5 MG TAB PO PRN (08:27)
--- NOTE | 2024-09-13 11:41 | P.CNOR ---
History of Present Illness - [facility] Consult date: 09/13/24 Consult reason: fracture (Right sided superior and inferior pubic rami fracture) History of present illness: Patient is a 79-year-old female who was admitted to [facility] yesterday with regards to worsening right sided hip pain. Apparently the patient had a fall back in April when she was on a small step ladder. She had been evaluated by the other orthopedic group in town, she had been seeing one of their pain management doctors who had recommended physical therapy. Patient had been progressively getting better, she stated over the last for 5 days the pain in that right lower extremity/hip region had worsened. Upon arrival to [facility], imaging test were done. They demonstrated a subacute/acute right superior and inferior pubic rami fracture. Patient was admitted under internal medicine, orthopedic team is on consult. Patient was evaluated at bedside today, she was accompanied by a friend. She appears rather comfortable on exam. She notices most discomfort in the right hip/pelvic region with weightbearing. Patient admits to some radiating pain sometimes and seems into the groin and sometimes it is on the top of the leg, sometimes it is on the back of the leg. She denies any numbness or tingling at this point of the bilateral lower extremities. She denies any jorge weakness to the bilateral lower extremities. She denies any loss of bowel or bladder functi on at this time. She denies any previous surgery to her lumbar spine or right hip. She has no headaches, lightheadedness, chest pain or shortness of breath at this time. Review of Systems Constitutional: Reports as per [facility] Past Medical History Past Medical History: Hyperlipidemia Additional Past Medical History / Comment(s): Osteopenia and history of kidney stones. Valladares's palsy in 2022. Restless Leg Syndrome. PAST [employer] HISTORY: She has no history of STDs. She is status post SAMEER in 1993 uterine fibroids and abnormal bleeding. History of Any Multi-Drug Resistant Organisms: None Reported Past Surgical History: Section, Hysterectomy Additional Past Surgical History / Comment(s): SAMEER 1989. hemorhoid. Colonoscopy 2012 & 2018(next after 10yr). Past Anesthesia/Blood Transfusion Reactions: No Reported Reaction Past Psychological History: No Psychological Hx Reported, Anxiety Additional Psychological History / Comment(s): mild anxiety Smoking Status: Former smoker Past Alcohol Use History: Occasional Additional Past Alcohol Use History / Comment(s): She quit smoking cigarettes in approximately 2018. Past Drug Use History: None Reported - Past Family History Mother Family Medical History: No Reported History Additional Family Medical History / Comment(s): 1 maternal aunt had breast cancer and another maternal aunt had colon cancer. Brother(s) Additional Family Medical History / Comment(s): of a brain aneurysm. Sister(s) Additional Family Medical History / Comment(s): Carotid artery disease. Medications and Allergies Home Medications Medication Instructions Recorded Confirmed Type ALPRAZolam [Xanax] 0.5 mg PO QID PRN 09/01/22 09/12/24 History Cyclobenzaprine [Flexeril] 10 mg PO BID PRN 09/12/24 09/12/24 History HYDROcodone/APAP 5-325MG [Orrick 1 tab PO Q6H PRN 09/12/24 09/12/24 History 5-325] rOPINIRole HCL [Requip] 2 mg PO DAILY@1800 09/12/24 09/12/24 History Allergies Allergy/AdvReac Type Severity Reaction Status Date / Time Penicillins Allergy Rash/Hives Verified 09/12/24 18:16 all over Physical Examination Gen: AOx3, NAD VSS stable at this time Integument: No open lesions, sores or areas of erythema are visualized throughout the right hip Palpation: No tenderness with palpation surrounding the right hip, this including the anterior, lateral and posterior regions. She is nontender with palpation throughout the midline and paraspinal region of the lumbar spine ROM: Full range of motion all major muscle groups of the bilateral upper and lower extremities, no focal deficits appreciated Sensory Exam: Senory exam to light touch is intact C5-T1 Senosry exam to light touch is intact L2-S1 Motor: 5/5 strength appreciated the bilateral lower extremities with hip flexion, knee extension, knee flexion, plantarflexion, dorsiflexion, EHL, FHL Reflexes: 2/4 in all UE and LE Negative Bruce's bilaterally Negative clonus bilaterally Special Test: Logroll maneuver of the bilateral lower extremities reproduces no groin pain. Patient has adequate range of motion with hip flexion along with internal and external rotation Negative straight leg raise bilaterally Results - Labs Labs: Abnormal Lab Results - Last 24 Hours (Table) 09/12/24 Range/Units 18:45 BUN 18 H (7-17) mg/dL Glucose 141 H (74-99) mg/dL AST 48 H (14-36) U/L Alkaline Phosphatase 184 H (38-126) U/L H & H 09/12/24 Range/Units 18:45 Hgb 13.0 (11.4-16.0) gm/dL Hct 41.0 (34.0-46.0) % Result Diagrams: 09/12/24 18:45 09/12/24 18:45 - Diagnostic results Hip x-ray: report reviewed, image reviewed Assessment and Plan Assessment: Right hip pain Bilateral hip osteoarthritis Subacute right sided superior and inferior pubic rami fractures History of fall Plan: Imaging: AP pelvis along with right sided hip x-rays were reviewed from 09/12/2024. Images did demonstrate cortical changes to the superior and inferior right-sided pubic rami representing subacute fracture. Mild hip osteoarthritic changes noted with loss of joint space and subchondral sclerosis. Plan: I was able to discuss the case, this to include both physical exam findings and imaging studies my attending Dr. Dumont. 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 Patient does live alone and is very independent of her activities. Recommending patient slowly ease back into her daily activities. Weight-bear as tolerated, can utilize walker or cane for assistance as needed Pain control, discussed the use of Tylenol, possible muscle relaxer low-dose narcotic as needed DVT prophylaxis per primary medical service Orthopedically patient is stable for discharge, our follow-up information will be placed in chart. Please contact our service with any further questions regarding this patient
[2024-09-13] MEDS ORDERED: NON FORMULARY DRUG (Ropinirole Hcl [Requip] 2 MG Tablet) PO SCH (18:00)
--- NOTE | 2024-09-14 08:27 | P.DS ---
Providers Date of admission: 09/12/24 20:11 Attending physician: Mikhail Avitia Consults: 09/12/24 17:45 Consult Physician Urgent Consulting Provider: Ricardo Dumont Consult Reason/Comments: Pubic ramus fracture Do you want consulting provider notified?: Yes Primary care physician: Mikhail Avitia - Discharge Diagnosis(es) (1) Pubic ramus fracture Current Visit: Yes Status: Acute (2) Hyperlipidemia Current Visit: No Status: Acute Hospital Course: This is a 79-year-old female who was recently seen in our office with complaints of significant hip pain. She had an x-ray done which showed a subacute/acute pubic rami fracture. She was seen and evaluated by orthopedics for their recommendation. They are recommending weightbearing as tolerated and slowly resuming normal activities. Patient may use Tylenol as needed for pain, she does have a prescription already at home for [place]. May also use muscle relaxant as needed. Patient seen this morning resting comfortably in bed. She states she was able to get up to the bathroom last night and clean up i ndependently without any significant pain. She will be discharged home today. She will follow-up in our office in 1 week. She is to stay off of work for now, and will discuss possible return to work at her follow-up appointment. Patient seen and evaluated by nurse practitioner, physician in agreement with plan. Patient Condition at Discharge: Fair Plan - Discharge Summary Discharge Rx Participant: No New Discharge Prescriptions: Continue HYDROcodone/APAP 5-325MG [[place] 5-325] 1 tab PO Q6H PRN PRN Reason: Pain Cyclobenzaprine [Flexeril] 10 mg PO BID PRN PRN Reason: Muscle Spasm ALPRAZolam [Xanax] 0.5 mg PO QID PRN PRN Reason: Anxiety rOPINIRole HCL [Requip] 2 mg PO DAILY@1800 Discharge Medication List ALPRAZolam [Xanax] 0.5 mg PO QID PRN 09/01/22 [History] Cyclobenzaprine [Flexeril] 10 mg PO BID PRN 09/12/24 [History] HYDROcodone/APAP 5-325MG [[place] 5-325] 1 tab PO Q6H PRN 09/12/24 [History] rOPINIRole HCL [Requip] 2 mg PO DAILY@1800 09/12/24 [History] Follow up Appointment(s)/Referral(s): Mikhail Avitia MD [Primary Care Provider] - 1 Week Ricardo Dumont MD [STAFF PHYSICIAN] - As Needed Activity/Diet/Wound Care/Special Instructions: Orthopedic discharge instructions: 1. Resume home medications 2. Weight-bear as tolerated, walker or cane as needed 3. Tylenol versus NSAID as needed for pain 4. Slowly ease back into activities of daily living 5. Follow-up information was placed in chart to follow-up as needed Discharge Disposition: HOME SELF-CARE
[2024-09-14 09:16] VITALS: BP 116/75; PULSE 97; RESP 17; TEMP 98.4
== END 2024-09-14 12:38 | disposition home or self-care (01) | DRG 536 ==
LOC: EC 16:05 → 4SSUR 20:11
PROVIDERS: ADMIT Family Medicine; ATTEND Family Medicine
DX: S32.591A Other specified fracture of right pubis, initial encounter for closed fracture (principal); Z66 Do not resuscitate; E78.5 Hyperlipidemia, unspecified; G25.81 Restless legs syndrome; M16.0 Bilateral primary osteoarthritis of hip; M85.80 Other specified disorders of bone density and structure, unspecified site; F41.9 Anxiety disorder, unspecified; Z79.899 Other long term (current) drug therapy; Z87.891 Personal history of nicotine dependence; W19.XXXA Unspecified fall, initial encounter; Z88.0 Allergy status to penicillin
CPT/HCPCS: 36415; 73502; 80053; 85025

== ENCOUNTER → 2024-09-19 | Outpatient (CLI) | payer MEDICARE, BC ==
--- NOTE | 2024-09-19 08:47 | US ---
EXAMINATION TYPE: US venous doppler duplex LE RT DATE OF EXAM: 09/19/2024 8:14 AM COMPARISON: NONE CLINICAL INDICATION: Female, 79 years old with history of R22.41 LOCALIZED SWELLING, MASS AND LUMP, R IGHT LO; swelling in right leg x 5 days. No hx of DVT. Not on blood thinners. , Pain TECHNIQUE: The lower extremity deep venous system is examined utilizing real time linear array sonog emmie with graded compression, color doppler sonography, and spectral doppler. SIDE PERFORMED: Right FINDINGS: VESSELS IMAGED: Common Femoral Vein Deep Femoral Vein Greater Saphenous Vein * Femoral Vein Popliteal Vein Small Saphenous Vein * Proximal Calf Veins (* superficial vessels) Right Leg: No evidence for DVT, Color Doppler imaging shows patency of the vessels. Spectral wavefor ms are within normal limits. IMPRESSION: 1. No evidence of acute deep vein thrombosis of the right lower extremity. [facility], , 09/19/2024 8:45 AM
== END | disposition home or self-care (01) ==
LOC: RADUSWWP 08:12
PROVIDERS: ATTEND Family Medicine
DX: R22.41 Localized swelling, mass and lump, right lower limb (principal)

== ENCOUNTER → 2024-11-09 | Outpatient (CLI) | payer MEDICARE, BC ==
--- NOTE | 2024-11-09 14:02 | MM ---
Reason for Exam: Screening (asymptomatic). Last mammogram was performed 1 year(s) and 8 month(s) ago. Patient History: Menarche at age 16. First Full-Term at age 19. Hysterectomy at age 47. Postmenopausal. Estrogen for 2 years until age 58. Progesterone for 2 years until age 58. Patient used Hormonal Contraceptives for 10 years. Maternal aunt had breast cancer, age 80. Risk Values: Marli 5 year model risk: 1.1%. NCI Lifetime model risk: 2.2%. Prior Study Comparison: 12/03/2020 Bilateral Screening Mammogram, [facility]. 01/27/2022 Bilateral MG 3D screening mammo w/cad, [facility]. 03/23/2023 Bilateral MG 3D screening mammo w/cad, [facility]. Tissue Density: The breasts are heterogeneously dense, which may obscure small masses. Findings: Analyzed By CAD. There is no suspicious group of microcalcifications or new suspicious mass in either breast. Overall Assessment: Negative, BI-RAD 1 Management: Screening Mammogram of both breasts in 1 year. . Patient should continue monthly self-breast exams. A clinical breast exam by your physician is recommended on an annual basis. This exam should not preclude additional follow-up of suspicious palpable abnormalities. Note on Marli scores and lifetime risk: 1. A Marli score greater than 3% is considered moderate risk. If this is the case, consider specialist referral to assess eligibility for a risk reducing agent. 2. If overall lifetime risk for the development of breast cancer is 20% or higher, the patient may qualify for future screening with alternating mammogram and breast MRI. [facility], , 11/09/2024 2:00 PM. Electronically signed and approved by: Robert Matias M.D.
--- NOTE | 2024-11-09 14:24 | BD ---
EXAMINATION TYPE: Axial Bone Density DATE OF EXAM: 11/09/2024 CLINICAL HISTORY: 79 years old Female. ICD-10 CODE: M81.0 OSTEOPOROSIS , Additional History: Height: 60 Weight: 105 FRAX RISK QUESTIONS: History of Fracture in Adulthood: yes 3. Menopause before 45: no 61 Current Tobacco Use: yes RISK FACTORS HISTORY OF: hx of pelvis fx, , MEDICATIONS: vit d and calcium, xanax, pain meds, aleve EXAM MEASUREMENTS: Bone mineral densitometry was performed using the [employer] SL System. Bone mineral density as measured about the Lumbar spine is: ----- L1-L4(G/cm2): 0.925 T Score Values are as follows: ----- L1: -2.2 ----- L2: -2.3 ----- L3: -1.9 ----- L4: -2.2 ----- L1-L4: -2.1 Z Score Values are as follows: ----- L1: 0.2 ----- L2: 0.0 ----- L3: 0.4 ----- L4: 0.2 ----- L1-L4: 0.2 Bone mineral density has: Decreased -3.4% since study of: 04.04.2018 Bone mineral density about the R hip (g/cm2): 0.764 Bone mineral density about the L hip (g/cm2): 0.876 T Score values are as follows: -----R Neck: -2.2 -----L Neck: -1.2 -----R Total: -1.9 -----L Total: -1.0 Z Score values are as follows: -----R Neck: 0.2 -----L Neck: 1.2 -----R Total: 0.3 -----L Total: 1.2 Bone mineral density has: Decreased -11.1% since study of: 04.04.2018 FRAX%s: The graph provided illustrates a 21.6% chance for a major osteoporotic fx and a 9.5% chance f or the hips probability for fx in 10 years time. IMPRESSION: Osteopenia (T Score between -2.5 and -1). There is slightly increased risk of fracture and the patient may be considered for treatment. Re-Screen 2-5 years. NOTE: T-SCORE=SD OF THE YOUNG ADULT MEAN. [facility], , 11/09/2024 2:22 PM
== END | disposition home or self-care (01) ==
LOC: RADBDWWP 12:54
PROVIDERS: ATTEND Family Medicine
DX: Z12.31 Encounter for screening mammogram for malignant neoplasm of breast (principal); R92.333 Mammographic heterogeneous density, bilateral breasts; M81.0 Age-related osteoporosis without current pathological fracture; M85.89 Other specified disorders of bone density and structure, multiple sites; Z78.0 Asymptomatic menopausal state; Z80.3 Family history of malignant neoplasm of breast; Z92.0 Personal history of contraception
CPT/HCPCS: 77063; 77067; 77080